=== PATIENT | female | born 1990 | race Caucasian/White ===

== ENCOUNTER 2016-07-03 02:48 | Emergency (ER) | payer BC, MEDICAID ==
[~2016-07-03 02:48] MED LIST: EFFEXOR50 MG PO; NO MEDS
[2016-07-03] MEDS ORDERED: SERTRALINE HCL50 M4 PO (03:11)
[2016-07-03 03:43] LABS: BASO % 0.5 % (0-2); EOS % 2.5 % (0-7); EOSINOPHIL ABSOLUTE COUNT 0.2 tho/cmm (0.0-0.7); HCT-HEMATOCRIT 35.9 % (34.0-49.0); HGB-HEMOGLOBIN 11.1 gm/dl (12.0-15.5); IMMATURE GRANULOCYTES ABSOLUTE 0.01 tho/cmm (0-0.03); IMMATURE GRANULOCYTES PERCENT 0.1 % (0-0.3); LYMPH % 45.3 % (20-45); LYMPH ABSOLUTE COUNT 3.4 tho/cmm (0.8-4.5); MCH (MEAN CORPUSCULAR HGB) 23.6 pg (28.0-32.0); MCHC MEAN CORPUSCULAR HGB CONC 30.9 % (32.0-36.0); MCV (MEAN CELL VOLUME) 76.2 fl (82.0-96.0); MEAN PLATELET VOLUME 9.4 cmc (9.4-12.4); MONO % 7.8 % (0-12); MONOCYTE ABSOLUTE COUNT 0.6 tho/cmm (0.0-1.2); NEUTROPHIL ABSOLUTE COUNT 3.3 tho/cmm (1.6-8.0); NEUTROPHIL-AUTOMATED 3.3 tho/cmm (1.6-8.0); NEUTROPHILS % 43.8 % (40-80); PLATELET COUNT 264 tho/cmm (150-450); RED BLOOD COUNT 4.71 mil/cmm (4.00-5.20); RED CELL DISTRIBUTION WIDTH 18.3 % (12.4-16.4); WHITE BLOOD COUNT 7.6 tho/cmm (4.0-10.0)
[2016-07-03 03:58] LABS: PREGNANCY-SERUM NEGATIVE (NEGATIVE)
[2016-07-03 04:02] LABS: ALBUMIN 3.7 g/dl (3.5-5.0); ALKALINE PHOSPHATASE 167 U/L (33-138); ALT/SGPT 58 U/L (12-78); ANION GAP 14 mmol/L (0-20); AST/SGOT 44 U/L (10-40); BILIRUBIN,TOTAL 0.7 mg/dl (0-1.5); BLOOD UREA NITROGEN 13 mg/dl (6-24); CALCIUM 8.7 mg/dl (8.5-10.5); CARBON DIOXIDE-VENOUS 29 mmol/L (22-32); CHLORIDE 103 mmol/l (96-110); CREATININE 0.96 mg/dl (0.50-1.10); GLUCOSE 121 mg/dL (70-110); LIPASE 153 U/L (73-393); SODIUM 143 mmol/L (135-145); eGFR VALUE FOR BLACK >90 mL/Min
[2016-07-03 07:43] LABS: URINE APPEARANCE HAZY; URINE BILIRUBIN NEGATIVE (NEG); URINE BLOOD MODERATE (NEG); URINE COLOR YELLOW; URINE GLUCOSE (UA) NEGATIVE (NEG); URINE KETONE NEGATIVE (NEG); URINE LEUKOCYTE ESTERASE POSITIVE (NEG); URINE NITRITE NEGATIVE (NEG); URINE PROTEIN NEGATIVE (NEG)
[2016-07-03 07:59] LABS: URINE BACTERIA 2+
[2016-07-03 08:00] LABS: URINE EPITHELIAL CELLS 50-60 /[HPF] (0-10)
[2016-07-03 08:01] LABS: URINE WBC 15-20 /[HPF] (0-5)
[2016-07-03 08:03] LABS: URINE MUCUS 1+
[2016-07-03] MEDS ORDERED: POTASSIUM CHLO20 ME3 PO (08:27)
[2016-07-03] MEDS ORDERED: PRILOSEC OTC20 M1 PO (09:35)
== END 2016-07-03 10:11 ==
LOC: EDMED 02:48
PROVIDERS: Emergency Medicine
DX: E87.6 Hypokalemia (principal); E83.42 Hypomagnesemia; R10.31 Right lower quadrant pain; R10.32 Left lower quadrant pain; R11.0 Nausea; F41.9 Anxiety disorder, unspecified; F32.9 Major depressive disorder, single episode, unspecified; F17.210 Nicotine dependence, cigarettes, uncomplicated; Z98.890 Other specified postprocedural states; Z79.899 Other long term (current) drug therapy
CPT/HCPCS: J1885; J2405; J3475; J3480; J7030; Q9967